=== PATIENT | female | born 2000 | race Caucasian/White ===

== ENCOUNTER 2022-01-27 15:37 | Emergency (ER) | payer OTHER, SELFPAY ==
[2022-01-27 15:38] VITALS: BP 119/68; PULSE 78; RESP 16; TEMP 36.4; O2SAT 100; BMI 21.9
--- NOTE | 2022-01-27 15:51 | CT_ITS ---
INDICATION: injury EXAMINATION: CT BRAIN - CT Head or Brain W/O Contrast Injection TECHNIQUE: Multiple axial images were obtained of the head without intravenous contrast. A radiation dose optimization technique was used for this scan. IV Contrast dosage and agent: None. COMPARISON: None. FINDINGS: BRAIN PARENCHYMA: No intra- or extra-axial hemorrhage. No evidence of acute infarct. No intracranial mass or mass effect. There is preservation of the wheeler/white matter interface. Posterior fossa structures are unremarkable. CSF SPACES: Appropriate for age. No hydrocephalus. Basal cisterns are patent. CALVARIUM, SKULL BASE, PARANASAL SINUSES AND MASTOID AIR CELLS: Clear. No discrete lytic or blastic abnormalities. ORBITS: Both globes, extraocular muscles, optic nerves and retrobulbar fat appear unremarkable. ASPECTS Score for Acute Strokes: 10 CT/Brain/Head without Contrast IMPRESSION: No evidence of acute pelvic pathology is seen. Electronically Signed: Yariel Armstrong MD at 16:23 EDT ,
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
== END 2022-01-27 16:43 | disposition home or self-care (01) ==
PROVIDERS: Emergency Provider Emergency Medicine; Visit Provider Emergency Medicine
DX: S06.0X0A Concussion without loss of consciousness, initial encounter (principal); W50.0XXA Accidental hit or strike by another person, initial encounter
CPT/HCPCS: 70450; 99282

== ENCOUNTER 2023-06-07 15:41 | Emergency (ER) | payer OTHER, SELFPAY ==
[2023-06-07 15:43] VITALS: BP 114/80; PULSE 88; RESP 16; TEMP 35.9; O2SAT 98; BMI 27.8
== END 2023-06-07 16:34 | disposition left against medical advice (07) ==
LOC: ED 16:37
DX: R51.9 Headache, unspecified (principal)

== ENCOUNTER 2023-06-07 21:29 | Emergency (ER) | payer OTHER, SELFPAY ==
[2023-06-07 21:30] VITALS: BP 131/74; PULSE 81; RESP 16; TEMP 36.4; O2SAT 98; BMI 25.6
--- NOTE | 2023-06-07 22:06 | EDS_ITS ---
HPI History of Present Illness Chief Complaint: Headache Detail of Chief Complaint: Headache Informant: patient Onset/Context/Timing Current Severity: 10/05 Narrative Narrative: Patient presents the emergency department complaint of a headache that initially started off for 5 days ago. She has had headache off and on since that time. She tried sumatriptan but did not seem to help much. She is also been using ibuprofen at home. She does have history of migraines. She saw neurologist a year ago who prescribed sumatriptan hand. Patient denies falls or head injuries. She denies recent illness. She denies fevers. Patient complains of occasional nausea and photophobia. PFSH PFSH Home Medications ondansetron 4 mg disintegrating tablet 4 mg PO Q6H PRN PRN Nausea #15 tabs 01/27/22 [Rx Last Taken Unknown] Allergy/AdvReac Type Severity Reaction Status Date / Time No Known Allergies Allergy Verified 06/07/23 21:32 Social History (Updated 01/27/22 @ 15:[address] Darnell Devries, DO) Smoking Status: Never smoker substance use type: does not use ROS ROS ED Review of Systems ROS Unobtainable: other Constitutional Constitutional ED: Reports lethargy; Denies chills, fever(s), sweats or weight loss Eyes Eyes: Denies blurry vision, change in vision or diplopia ENT ENT ED: Denies rhinorrhea or sore throat Cardiovascular Cardiovascular: Denies chest pain, orthopnea or racing heartbeat Respiratory/Chest Respiratory/Chest: Denies cough, dyspnea, dyspnea on exertion, orthopnea or sputum Gastrointestinal Gastrointestinal: Reports nausea; Denies abdominal pain, diarrhea or vomiting Genitourinary Genitourinary ED: Denies dysuria, hematuria or urinary frequency Musculoskeletal Musculoskeletal: Denies arthralgias, back pain, myalgias or neck pain Integumentary Denies abscess, Abrasions or rash Neurologic Neurologic: Reports headache(s); Denies weakness Psychiatric Psychiatric: Denies anxiety, depression or suicidal thoughts Endocrine Endocrinology: Denies polydipsia, polyphagia or polyuria Hematologic/Lymphatic Hematologic/Lymphatic: Denies easy bleeding, easy bruising or lymphadenopathy Allergic/Immunologic Allergic/Immunologic ED: Denies mouth swelling, tongue swelling or urticaria EXAM Physical Exam Const Vital Signs: 06/07/23 21:30 Temperature 97.5 F L Temperature Source Temporal Pulse Rate 81 Respiratory Rate 16 Blood Pressure 131/74 H Blood Pressure Mean 93 Pulse Ox 98 Oxygen Delivery Method Room Air Positive well nourished and well developed General Appearance ED: well developed and NAD HEENT Reports TM's clear and moist mucous membranes normocephalic and atraumatic; Negative for trauma or tenderness Tympanic Membrane ED: Yes TM's clear Eyes PERRL and EOMs intact bilaterally General Eye ED: Negative for pale conjunctiva or scleral icterus Neck no lymphadenopathy, supple and no JVD General: Negative for tenderness Chest Wall inspection of chest normal and palpation of chest normal Chest: Negative for tenderness Resp normal respiratory effort and clear to auscultation bilaterally Effort and Inspection: Negative for respiratory distress or pain with movement Auscultation: Negative for rhonchi, wheezes or diminished lung sounds Cardio regular rate, regular rhythm, S1 normal heart sound, S2 normal heart sound and no murmurs Peripheral Pulses: pulses 2+ throughout GI normal to inspection, nondistended, normoactive bowel sounds, soft to palpation, non-tender, non-distended and no masses Back/Spine no CVA tenderness and no thoracic nor lumbar tenderness Extremity normal to inspection General Extremety ED: Negative for edema General Extremity: Negative for edema Neuro oriented x3, CN's II-XII intact bilaterally, no sensory deficits noted and gait normal Sensorium / Orientation: awake, alert, oriented to person, oriented to place and oriented to time Motor Exam: strength 5/5 throughout and strength abnormal Psych mental status grossly normal Skin no rashes or lesions noted and no wounds MDM MDM MDM Narrative Medical decision making narrative: Patient presents with headache that is typical of her migraines. She normally gets migraines at least twice a month. Clinically she looks well and is nontoxic-appearing. No recent illness. IV line established. She was medicate with Reglan, Benadryl, Toradol, and a liter normal saline fluid bolus. She was also given Decadron 10 mg IV. After 25 minutes patient was reexamined and headaches resolved. Clinically she looks well. Advised to follow-up with her primary care physician and if she has recurrent persistent headaches to follow- up with her neurologist. Patient advised to return if worsening headache, difficulty with balance or speech, or condition worsen anyway. Discharge Plan Triage Chief Complaint: Headache ED Provider: Savana Patrick Dx/Rx/DC Orders Clinical Impression: Migraine headache Instructions: ED, Migraine (Classical) Prescriptions: No Action ondansetron [ondansetron] 4 mg tablet,disintegrating 4 mg PO Q6H PRN PRN (Reason: Nausea) Qty: 15 0RF Primary Care Provider: Care Physician,No Primary Referrals: Care Physician,No Primary [Primary Care Provider] - Activity Restrictions/Additional Instructions: Follow-up with your family doctor or neurologist within the next 3 to 5 days. Disposition Disposition: Home, Self Care Discharge Date/Time: 06/07/23 23:17
[2023-06-07] MEDS: DiphenhydrAMINE 50 MG/ML Syringe 25 MG IV (22:25)
[2023-06-07] MEDS: Metoclopramide 10 MG/2 ML Vial IV (22:25)
[2023-06-07] MEDS: 0.9% Normal Saline (1000mL) 1,000 ML 1000 ML IV (22:26)
[2023-06-07] MEDS: dexAMETHasone 10 MG/ML Vial IV (22:26)
[2023-06-07] MEDS: Ketorolac 30 MG/ML Syringe IV (22:26)
== END 2023-06-07 23:17 | disposition home or self-care (01) ==
PROVIDERS: Emergency Provider Emergency Medicine; Referring Provider Emergency Medicine; Visit Provider Emergency Medicine
DX: G43.909 Migraine, unspecified, not intractable, without status migrainosus (principal)
CPT/HCPCS: 96361; 96374; 96375; 99283; J7030; A4216

== ENCOUNTER 2023-06-10 20:53 | Emergency (ER) | payer OTHER, SELFPAY ==
[2023-06-10 20:54] VITALS: BP 136/92; PULSE 89; RESP 16; TEMP 36.6; O2SAT 98; BMI 27.7
--- NOTE | 2023-06-10 21:13 | EX.ED.DYSGE1 ---
HPI History of Present Illness Chief Complaint: Headache [facility] Medical History (Updated 06/10/23 @ 21:[address] Tunde Catalan, DO) Migraine Home Medications ondansetron 4 mg disintegrating tablet 4 mg PO Q6H PRN PRN Nausea #15 tabs 01/27/22 [Rx Last Taken Unknown] metoclopramide HCl 5 mg tablet (Reglan) 5 mg PO DAILY headache 7 days #21 tabs 06/10/23 [Rx Last Taken Unknown] Allergy/AdvReac Type Severity Reaction Status Date / Time No Known Allergies Allergy Verified 06/10/23 20:54 Social History (Updated 01/27/22 @ 15:[address] Darnell Devries, ) Smoking Status: Current every day smoker tobacco type: e-cigarettes substance use type: does not use EXAM Physical Exam Const Vital Signs: 06/10/23 20:54 Temperature 97.8 F Temperature Source Temporal Pulse Rate 89 Respiratory Rate 16 Blood Pressure 136/92 H Blood Pressure Mean 106 Pulse Ox 98 MDM MDM MDM Narrative Medical decision making narrative: HISTORY OF PRESENT ILLNESS: 22year old F presents with headache. States she has been having 7 days of bitemporal headache, nausea, sensitivity to light and sound. Similar to prior headaches. No head trauma. No focal weakness, no dysarthria, dysphagia, aphasia, no changes in vision. No fever or neck stiffness noted. No sick contacts. Patient denies sudden onset or thunderclap headache, denies maximal intensity within 1 minute, vomiting, neck pain or stiffness, changes in vision, fever, history malignancy, syncope, seizures. REVIEW OF SYSTEMS: All other systems reviewed and are negative except as noted in the history of present illness. At least 10 review of systems reviewed and are negative except as noted in history of present illness. PHYSICAL EXAM: Nursing triage notes reviewed, Vital signs reviewed Constitutional: please see mdm HENT: MMM Eyes: Pupils equal round and reactive to light, Extraocular muscles intact Neck: No stridor, no JVD, full neck ROM Lungs: Clear to auscultation, No wheezing or rales. No increased work of breathing, no conversational dyspnea, no accessory muscle use, no nasal flaring. No respiratory distress noted Heart: Regular rate and rhythm, No murmurs, No rubs and No gallops, 2+ distal pulses (radial, femoral, posterior tibial) in all extremities Abdomen: Soft, there is no tenderness, rigidity, rebound or guarding, no obvious peritoneal signs, no palpable pulsatile abdominal masses, no auscultated abdominal bruit : No CVAT Extremities: No edema Neuro: Alert and oriented x3, neuro exam at baseline, cranial nerves II through XII are intact. No pain with extraocular muscle movement. There is negative test of skew. Normal speech. 5 of 5 strength in upper and lower extremities in flexion extension. Intact sensation to light touch in upper and lower extremity dermatomes. No truncal or extremity ataxia. No dysdiadochokinesia. Normal gait. 2+ reflexes. No meningeal signs. Negative Babinski. NIH of 0 Skin: No rash or lesions noted MEDICAL DECISION MAKING: Chief Complaint: Headache External records reviewed: CT scan of the brain from January shows no acute process Factors affecting care: History of migraines Social determinants of health: Patient states she vapes History obtained from others: Patient significant other Consults: none ALL IMAGES (IF OBTAINED) HAVE BEEN PERSONALLY REVIEWED AND INTERPRETED BY MYSELF. MDM Narrative: Patient presented hemodynamically stable, afebrile, nontoxic-appearing. There were no focal neurological deficits on exam. I considered the following differential diagnosis: Subarachnoid hemorrhage, epidural hematoma, ICH, meningitis, carotid artery dissection, primary headache (primary headache, migraine, tension headache, cluster headache) The patient looks great and is in no significant objective discomfort currently. The patient's headache is non-specific. Exam is unremarkable. The patient is in no distress and the patient?s neurological exam is non-focal, neck is supple and without meningismus. The headache is not consistent with meningitis or infection, nor is it consistent with intracranial bleed (SAH etc.), carotid dissection, nor mass by history and examination. Medication and outpatient follow-up was instructed. The patient was instructed to return as needed or if symptoms changed or worsened, fever developed or inability to tolerate fluids. The patient agreed with plan. The patient and/or family, caregivers express understanding. The patient and/or family, caregivers agrees with the plan. Total critical care time today provided was at least 0 minutes. This excludes separately billable procedures. Critical care time (if documented) is secondary to the patient having high probability of clinically significant/life threatening deterioration in the patient's condition which required my urgent intervention. Shared decision making: I will have a discussion with the patient and or visitors regarding risk/benefits of further testing or admission. They will be made aware of of the risk/benefits inherent in this decision they will be given the opportunity to voice understanding. Impression: 1. Migraine headache ] Disposition: Discharge home Treatment and Re-Evaluation :: Repeat neurologic exam remains intact. Patient reported for discharge home. Discharge Plan Triage Chief Complaint: Headache ED Provider: Tunde Catalan Dx/Rx/DC Orders Clinical Impression: Migraine headache Instructions: ED, Migraine (Classical) Prescriptions: New metoclopramide HCl [Reglan] 5 mg tablet 5 mg PO DAILY 7 Days Qty: 21 0RF No Action ondansetron [ondansetron] 4 mg tablet,disintegrating 4 mg PO Q6H PRN PRN (Reason: Nausea) Qty: 15 0RF Primary Care Provider: Care Physician,No Primary Referrals: Care Physician,No Primary [Primary Care Provider] - Activity Restrictions/Additional Instructions: Thank you for trusting us with your care today! Please take Tylenol (2 pills, 650 mg), ibuprofen (2 pills, 400 mg) every 6 hours as needed for pain and fever control. Please take Reglan as needed for headache and nausea Please return to the emergency department if your symptoms change or worsen. Specifically develop loss of vision, neck stiffness, vomiting, loss of vision, slurred speech, difficulty swallowing Please follow with your primary care physician and/or your neurologist for further outpatient evaluation and management. Disposition Disposition: Home, Self Care Discharge Date/Time: 06/10/23 22:40
[2023-06-10] MEDS: dexAMETHasone 4 MG Tablet PO (21:38)
[2023-06-10] MEDS: Acetaminophen 325 MG Tablet 650 MG PO (21:38)
[2023-06-10] MEDS: Ibuprofen 200 MG Tablet 400 MG PO (21:38)
[2023-06-10] MEDS: Metoclopramide 5 MG TABLET PO (21:39)
== END 2023-06-10 22:40 | disposition home or self-care (01) ==
PROVIDERS: Emergency Provider Emergency Medicine; Visit Provider Emergency Medicine
DX: G43.909 Migraine, unspecified, not intractable, without status migrainosus (principal); F17.290 Nicotine dependence, other tobacco product, uncomplicated
CPT/HCPCS: 99283

== ENCOUNTER 2023-10-30 17:22 | Inpatient (IN) | payer OTHER, SELFPAY ==
[2023-10-30] VITALS (12 sets, daily range): BP systolic 103–131; BP diastolic 57–79; PULSE 94–129; RESP 14–22; TEMP 36.2–37.6; O2SAT 94–98; BMI 28.8
--- NOTE | 2023-10-30 | APP_PTH ---
PATIENT: RUBINA COX LOC: [facility] U#:[id number] AGE/SX: 23/F ROOM: [facility]313 RE10/30/[address]: Dr. Dana Smith MD : 2000 BED: 1 DIS: 11/02/2023 SPEC #: [id number] RECD: 11/01/23 08:13 STATUS: JUANPABLO FREDERICK #: [id number] ALAYNA: 10/30/23 00:[address]: Dana Smith DEPT: SURGICAL PATHOLOGY RECD BY: Merlyn Hanson Tissues: Appendix, NOS Procedures: Surgery Specimen Level III HEADER OPERATION: Laparoscopic, appendectomy perforated PRE-OP DIAGNOSIS: Acute perforated appendicitis TISSUE SUBMITTED: Appendix MICROSCOPIC DIAGNOSIS Appendix, appendectomy: Acute purulent appendicitis and periappendicitis. BARBARA/ 11/02/23 MICROSCOPIC DESCRIPTION Slides are reviewed. GROSS DESCRIPTION Received in fixative is one container labeled with the patient's name and designated appendix. The specimen consists of appendix measuring 5.5 cm in length and up to 1.5 cm in diameter. The attached periappendiceal adipose tissue measures up to 1.5 cm in width. The serosa is congested and covered with wheeler purulent exudate. No obvious perforation is identified. The lumen is filled with fecal material. Mucosa is congested and hemorrhagic. No fecalith is identified. Programming Development Project Manager sections are submitted in one cassette. BARBARA: 11/01/23 TC:2 CPT: 86853
--- NOTE | 2023-10-30 18:01 | CT_ITS ---
We are attempting to reach an attending provider to discuss findings. An addendum with communication details will be sent when the communication is complete. STUDY: CT ABDOMEN AND PELVIS WITH CONTRAST REASON FOR EXAM: Female, 23 years old. RLQ pain RADIATION DOSAGE (If Supplied By Facility): CTDIvol = ( 10.43 ) mGy, DLP = ( 662.51 ) mGycm TECHNIQUE: Transaxial images were obtained from the dome of the diaphragm to the symphysis pubis without oral contrast. IV 100mL Isovue-370 was administered. Sagittal and coronal images were reconstructed. Individualized dose optimization techniques were used for this CT. COMPARISON: None. FINDINGS: The visualized lung bases are unremarkable. The visualized portions of the heart are within normal limits. Normal liver. Normal gallbladder and extrahepatic biliary system. Normal spleen. Normal pancreas. Normal bilateral adrenal glands. Normal right kidney. Normal left kidney. Normal visualized stomach. Normal small intestine. Air-fluid levels noted in the colon. There is a tubular, thick-walled appendix (>7mm), consistent with acute appendicitis. Normal abdominal aorta. Normal inferior vena cava. Normal retroperitoneum. Normal urinary bladder. Possible 2.5 cm right adnexal cyst. Normal abdominal wall. Normal osseous structures. CT/Abdomen/Pelvis W IV Cont ONLY IMPRESSION: Acute appendicitis without evidence of abscess or perforation. Electronically Signed: Simon Kay MD at 20:30 EDT ,
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
[2023-10-30] MEDS: Ondansetron 4 MG/2 ML Vial IV (18:20)
[2023-10-30] MEDS: 0.9% Normal Saline (1000mL) 1,000 ML 1000 ML IV (18:20)
[2023-10-30] MEDS: Ketorolac 15 MG/ML Vial IV (18:21)
[2023-10-30 18:33] LABS: Absolute Lymphocyte Count 1.91 X10^3/uL (0.83-4.51); Absolute Neutrophil Count 19.1 X10^3/uL (2.0-7.7); Basophil# 0.05 X10^3/uL; Basophil% 0.2 % (0-1); Eosinophil# 0.01 X10^3/uL; Hematocrit 40.5 % (37-47); Hemoglobin 13.8 g/dL (12.0-15.0); Lymphocyte # 1.91 X10^3/ul (0.83-4.51); Lymphocyte % 8.5 % (19-41); Mean Corp Hgb Conc 34.1 g/dL (32-36); Mean Platelet Vol. 9.7 fl (6.2-12.0); Monocyte# 1.28 X10^3/uL; Monocyte% 5.7 % (0-10); NRBC Flagged by Analyzer 0 % (0-5); Neutrophil # 19.11 X10^3/uL (2.7-7.7); Neutrophil % 85.2 % (47-70); Platelet Count 353 K/mm3 (150-450); RBC Distribution Width CV 11.4 % (11.6-14.6); RBC Distribution Width SD 38.3 fl (35.1-43.9); Red Blood Count 4.45 M/mm3 (4.2-5.4); White Blood Count 22.5 K/mm3 (4.4-11.0)
[2023-10-30 18:42] LABS: Internal QC Validated? YES +Cl - CLEAR BKGD; Pregnancy, Serum, hCG Quali. NEGATIVE Negative
[2023-10-30] MEDS: Morphine 4 MG/ML Syringe IV (18:44)
[2023-10-30 18:50] LABS: ALB/GLOB Ratio 1.1 RATIO (0.9-2.4); AST(SGOT) 6 U/L (15-37); Alanine Aminotransfer ALT/SGPT 21 U/L (13-56); Albumin, Serum 3.9 g/dL (3.2-5.0); Alkaline Phosphatase 78 U/L (45-117); Anion Gap 11 (5-15); BUN 7 mg/dL (7-18); BUN/Creat Ratio 10.2 RATIO (10-20); Calcium,Total 9.1 mg/dL (8.5-10.1); Chloride 105 mmol/L (98-107); Creatinine, Serum 0.69 mg/dL (0.55-1.02); EST Glomerular Filtration Rate 114 mL/min (>60); Est Glom Filt Rate - Afr Amer 139 mL/min (>60); Estimated Creatinine Clearance 119.42 ml/min; Globulin 3.6 g/dL (2.2-4.2); Glucose 121 mg/dL (74-106); Lipase 21 U/L (13-75); Potassium 3.4 mmol/L (3.5-5.1); Protein, Total 7.5 g/dL (6.4-8.2); Sodium Level 137 mmol/L (136-145)
[2023-10-30] MEDS: Piperacil/Tazobactam 3.375 GM in 0.9% Normal Saline (50mL MB+) 50 ML IV (19:42)
[2023-10-30 19:47] LABS: Bacteria 0 SEEN /hpf (None Seen); Mucous, Urine 0 SEEN /hpf (<or=2+); Red Blood Cells-Urine 0 SEEN /hpf (0-5); Squamous Epithelial Cells - UA 0 SEEN /hpf (5-10); White Blood Cells 0 SEEN /hpf (0-5)
--- NOTE | 2023-10-30 19:54 | PCM.HP.STD ---
HPI - General General Date of Admission: 10/30/23 HPI Narrative RUBINA COX, is a 23 F who presents to the ER due to right lower quadrant pain. Patient states started about 24 hours ago. Patient had nausea and vomiting x 1 she arrived in the ER. Patient white blood count 22.5. CT abdomen pelvis was completed and showed acute perforated appendicitis-on my read official read pending. Patient has never had any abdominal surgeries. Only on naproxen due to migraines for medications. [facility] Medical History Migraine Home Medications naproxen 500 mg tablet 500 mg PO BID PRN PRN pain 10/30/23 [History Last Taken Unknown] Allergy/AdvReac Type Severity Reaction Status Date / Time No Known Allergies Allergy Verified 10/30/23 17:23 Social History Smoking Status: Current every day smoker tobacco type: e-cigarettes substance use type: does not use Vital Signs Vital Signs Vital Signs: 10/30/23 17:23 10/30/23 19:39 10/30/23 19:41 Temperature 97.2 F L 98.4 F Temperature Source Temporal Oral Pulse Rate 129 H 114 H 114 H Respiratory Rate 16 22 H 14 Blood Pressure 109/79 131/77 H 131/77 H Blood Pressure Mean 89 95 95 Blood Pressure Source Monitor Blood Pressure Position Semi-Fowlers Blood Pressure Location Right Arm Pulse Ox 97 98 98 Oxygen Delivery Method Room Air Room Air Room Air 10/30/23 19:46 Temperature 98.4 F Temperature Source Pulse Rate 114 H Respiratory Rate 22 H Blood Pressure 131/77 H Blood Pressure Mean 95 Blood Pressure Source Blood Pressure Position Blood Pressure Location Pulse Ox 98 Oxygen Delivery Method Weight Weight: 157 lb 9.6 oz Body Mass Index (BMI) 28.8 Physical Exam Const alert, oriented x3 and no apparent distress HEENT normocephalic and head/scalp atraumatic Resp normal respiratory effort Cardio regular rate GI soft to palpation; Negative for non-distended Palpation: tender LLQ, RLQ and Rovsing's sign; Negative for guarding Extremity no clubbing, cyanosis or edema Neuro CN's II-XII intact bilaterally Psych mental status grossly normal Results Lab / Micro Data 10/30/23 18:20 10/30/23 18:20 Labs: Laboratory Results - last 24 hr 10/30/23 18:20: WBC 22.5 H, RBC 4.45, Hgb 13.8, Hct 40.5, MCV 91.0, MCH 31.0, MCHC 34.1, RDW Std Deviation 38.3, RDW Coeff of Rama 11.4 L, Plt Count 353, MPV 9.7, Immature Gran % (Auto) 0.400, Neut % (Auto) 85.2 H, Lymph % (Auto) 8.5 L, [place] % (Auto) 5.7, Eos % (Auto) 0.0, Baso % (Auto) 0.2, Absolute Neuts (auto) 19.1 H, Absolute Lymphs (auto) 1.91, Nucleated RBC % 0, Sodium 137, Potassium 3.4 L, Chloride 105, Carbon Dioxide 21.0, Anion Gap 11, BUN 7, Creatinine 0.69, Estim Creat Clear Calc 119.42, Est GFR (MDRD) Af Amer 139, Est GFR (MDRD) Non-Af 114, BUN/Creatinine Ratio 10.2, Glucose 121 H, Calcium 9.1, Total Bilirubin 0.70, AST 6 L, ALT 21, Alkaline Phosphatase 78, Total Protein 7.5, Albumin 3.9, Globulin 3.6, Albumin/Globulin Ratio 1.1, Lipase 21, Serum , Qual NEGATIVE Assessment & Plan Assessment/Plan (1) Acute perforated appendicitis: PLAN: Plan 1. Discussed procedure laparoscopic appendectomy, possible open, possible bowel resection along with the risk but not limited to bleeding, infection/abscess higher chance due to perforation, injury to another organ (small bowel, colon, etc.), adhesion, hernia at incision sites, and anesthesia. Patient and her mom had no further question this time. Dana Smith M.D. Pager: [phone] [facility] [address] [place] [address], [facility], [address] [place] [address] Office: [phone] Dana Smith M.D. Pager: [phone] [facility] [address] [place] [address], [address] [place] [address] Office: [phone]
[2023-10-30 20:15] LABS: Color, Urine Yellow (Yellow); Glucose, Dipstick Normal (Normal); Leukocyte Esterase-Dipstick Negative /ul (Negative); Nitrite-Dipstick Negative (Negative); Occult Blood-Urine 10 /ul (Negative); Protein-Dipstick 15 mg/dl (Negative); Specific Gravity, Urine 1.005 (1.002-1.030); Urine Bilirubin Dipstick Negative (Negative); Urine Clarity Clear (Clear); Urine Urobilinogen Normal (Normal); Urine pH 6.5 (5.0 - 8.0)
[2023-10-30 20:17] LABS: Ketone-Dipstick 150 mg/dl (Negative)
--- NOTE | 2023-10-30 20:50 | FLU_PTH ---
PATIENT: RUBINA COX LOC: MS3 U#:[id number] AGE/SX: 23 ROOM: MS313 RE10/30/[address]: Dr. Dana Smith MD : 2000 BED: 1 DIS: 11/02/2023 SPEC #: [id number] RECD: 10/31/23 21:00 STATUS: JUANPABLO MACK #: [id number] ALAYNA: 10/30/23 20:[address]: Dana Smith DEPT: CYTOLOGY RECD BY: Merlyn Hanson Tissues: Abdominal cavity, NOS Procedures: Special Stain Group II Surgery Specimen Level IV Cytospin Fluid HEADER OPERATION: Laparoscopic, appendectomy perforated PRE-OP DIAGNOSIS: Acute perforated appendicitis TISSUE SUBMITTED: Abdominal abscess fluid DIAGNOSIS CYTOLOGY Abdominal abscess fluid (cytospin and cellblock): Negative for malignant cells. Marked acute inflammation. See comment. BARBARA/ 11/03/23 COMMENT Please also make reference to additional specimen [id number] appendix, appendectomy diagnosis of acute purulent appendicitis and periappendicitis. CYTOLOGY STUDY Slides are reviewed. CYTOLOGY GROSS Received is 10 ml of carrillo-cloudy fluid labeled with the patient's name and and designated per the requisition as Abdominal abscess fluid. Submitted for cytology preparation including cell block. Mr 11/01/23 TC:2 CPT: 09181,94873
[2023-10-30] MEDS: Bupiv/Epi 0.25% 30 ML Vial (21:11)
--- NOTE | 2023-10-30 21:11 | PCM.OPRPT ---
Report of Operation Date of Procedure: 10/30/23 Pre-Operative Diagnosis: Acute perforated appendicitis Post-Operative Diagnosis: Same Surgery/Procedure Performed:: Laparoscopic appendectomy, placement ALPHONSE Surgeon: Dana Smith garment manufacturer: Chinyere Amaro Type of Anesthesia: General/Supplemental Anesthesiologist: Caleb Arellano Special Medications: Zosyn IV in the ER for acute perforated appendicitis Specimen's removed: Appendix Drains: ALPHONSE 15 Fr Estimated Blood Loss (mL): 10 cc Fluids Replaced: 1000 cc Description of Procedure: Indications: 23-year-old female presented to the ER with yesterday right lower quadrant pain morning. On workup she was found to have acute appendicitis on CT and a leukocytosis of 22. Patient was started on antibiotics in the ER for acute appendicitis-Zosyn IV x1 Description of the procedure: The patient was placed on operating table in supine position. General anesthesia was induced. A timeout was completed verifying correct patient, procedure, position and special equipment prior to beginning procedure. Abdomen was prepped and draped in usual sterile fashion. Incision was made in the natural skin line above the umbilicus with a 15 blade scalpel. The fascia was elevated and incised. Entry into the peritoneum was confirmed visually and no bowel was noted in the vicinity of the incision. The Benites trocar was placed under direct vision. Abdomen insufflated with a pressure of 12-15 mmHg. Patient tolerated insertion well. The scope was inserted and the abdomen inspected. No injuries from initial trocar placement were noted. Minimal amount of fluid was seen in the right lower quadrant. An direct visualization 2 -5 mm trocars were placed one above the symphysis pubis and below the hairline and one in the left lower quadrant lateral to the rectus muscle. Care is taken to avoid injury to the bladder and inferior epigastric vessels. The table was placed in Trendelenburg position with the right side elevated. The appendix was grasped with atraumatic grasper and elevated. It was noted to be gangrenous/perforated. Purulent fluid was seen throughout the abdomen. Fluid was sent for culture. Purulent fluid was suctioned. A window was developed in the mesoappendix at the point between the base of the appendix and the cecum. An endoscopic 45 mm linear cutting stapler blue load was then used to divide and staple the base of the appendix. Enseal was used to divide the mesoappendix. The appendix was withdrawn into the Benites trocar after being placed endoscopically retrieval bag. Appendix was sent to pathology. The appendiceal stump was then irrigated and hemostasis was assured. Abdomen was copiously irrigated with saline and suctioned. 15 [place]ien ALPHONSE was placed into the pelvis?exiting the left lower quadrant trocar site. Secondary trochars were removed under direct visualization. No bleeding was noted trocar sites. The laparoscope withdrawn and the umbilical trocar removed. The abdomen was allowed to collapse. Local anesthesia of 30 mL of 0.5% Marcaine was used at the incision sites. The umbilical trocar site was closed with the [id number] 0 Vicryl suture. The skin was closed using sutures of 4-0 Monocryl and Steri-Strips. The patient was extubated. The patient tolerated the procedure well and was taken to the postanesthesia care unit in satisfactory condition. Complications none
[2023-10-30] MEDS: 0.9% Normal Saline (1000mL) 1,000 ML 150 ML IV (22:45)
[2023-10-30] MEDS: Pantoprazole Sodium 40 MG in 0.9% Normal Saline (100mL MB+) 100 ML 330 MG IV (22:47)
[2023-10-31] VITALS (7 sets, daily range): BP systolic 95–114; BP diastolic 55–73; PULSE 73–95; RESP 13–18; TEMP 36.5–37.2; O2SAT 97–100
[2023-10-31] MEDS: Ketorolac 15 MG/ML Vial IV ×3 (00:59→22:45)
[2023-10-31] MEDS: 0.9% Normal Saline (1000mL) 1,000 ML 150 ML IV ×2 (05:43→12:02)
[2023-10-31] MEDS: Piperacil/Tazobactam 3.375 GM in 0.9% Normal Saline (50mL MB+) 50 ML IV ×3 (05:44→21:00)
[2023-10-31 06:50] LABS: Absolute Lymphocyte Count 0.43 X10^3/uL (0.83-4.51); Absolute Neutrophil Count 14.1 X10^3/uL (2.0-7.7); Basophil# 0.02 X10^3/uL; Basophil% 0.1 % (0-1); Hematocrit 34.5 % (37-47); Hemoglobin 11.6 g/dL (12.0-15.0); Lymphocyte # 0.43 X10^3/ul (0.83-4.51); Lymphocyte % 2.8 % (19-41); Mean Corp Hgb Conc 33.6 g/dL (32-36); Mean Corpuscular Hgb 31.4 pg (27.0-32.0); Mean Corpuscular Volume 93.2 fL (81-99); Mean Platelet Vol. 10.4 fl (6.2-12.0); Monocyte# 0.53 X10^3/uL; Monocyte% 3.5 % (0-10); NRBC Flagged by Analyzer 0 % (0-5); Neutrophil # 14.13 X10^3/uL (2.7-7.7); Neutrophil % 93.2 % (47-70); POSITIVE DIFFERENTIAL YES; Platelet Count 266 K/mm3 (150-450); RBC Distribution Width CV 11.6 % (11.6-14.6); RBC Distribution Width SD 39.6 fl (35.1-43.9); White Blood Count 15.2 K/mm3 (4.4-11.0)
[2023-10-31 07:05] LABS: Anion Gap 5 (5-15); BUN 6 mg/dL (7-18); BUN/Creat Ratio 9.3 RATIO (10-20); Calcium,Total 8.5 mg/dL (8.5-10.1); Chloride 114 mmol/L (98-107); Creatinine, Serum 0.64 mg/dL (0.55-1.02); EST Glomerular Filtration Rate 123 mL/min (>60); Est Glom Filt Rate - Afr Amer 149 mL/min (>60); Estimated Creatinine Clearance 128.85 ml/min; Glucose 152 mg/dL (74-106); Sodium Level 141 mmol/L (136-145)
--- NOTE | 2023-10-31 08:23 | PCM.PN.SRG ---
Subjective Subjective Patient states her pain is improved from previous to surgery. Patient's ALPHONSE is purulent, tolerating clears, denies flatus, white blood count down to 13 Objective Data Objective Data Vital Signs: Vital Signs Temp Pulse Resp BP Pulse Ox O2 Del Method 97.7 F L 81 18 107/69 97 Room Air 10/31/23 05:52 10/31/23 05:52 10/31/23 05:52 10/31/23 05:52 10/31/23 05:52 10/31/23 05:52 Oxygen Delivery Method Room Air Weight: 157 lb 13.616 oz Body Mass Index (BMI) 28.8 Intake & Output: Intake and Output for Last 24 Hours 10/29/23 10/30/23 10/31/23 23:59 23:59 23:59 Intake Total 2500 / 2500 1300 / 1300 Output Total 39 / 39 30 / 30 Balance 2461 / 2461 1270 / 1270 Lab / Micro Data 10/31/23 05:30 10/31/23 05:30 Labs: Laboratory Results - last 24 hr 10/30/23 18:20: WBC 22.5 H, RBC 4.45, Hgb 13.8, Hct 40.5, MCV 91.0, MCH 31.0, MCHC 34.1, RDW Std Deviation 38.3, RDW Coeff of Rama 11.4 L, Plt Count 353, MPV 9.7, Immature Gran % (Auto) 0.400, Neut % (Auto) 85.2 H, Lymph % (Auto) 8.5 L, [place] % (Auto) 5.7, Eos % (Auto) 0.0, Baso % (Auto) 0.2, Absolute Neuts (auto) 19.1 H, Absolute Lymphs (auto) 1.91, Nucleated RBC % 0, Sodium 137, Potassium 3.4 L, Chloride 105, Carbon Dioxide 21.0, Anion Gap 11, BUN 7, Creatinine 0.69, Estim Creat Clear Calc 119.42, Est GFR (MDRD) Af Amer 139, Est GFR (MDRD) Non-Af 114, BUN/Creatinine Ratio 10.2, Glucose 121 H, Calcium 9.1, Total Bilirubin 0.70, AST 6 L, ALT 21, Alkaline Phosphatase 78, Total Protein 7.5, Albumin 3.9, Globulin 3.6, Albumin/Globulin Ratio 1.1, Lipase 21, Serum , Qual NEGATIVE 10/30/23 19:42: Urine Color Yellow, Urine Clarity Clear, Urine pH 6.5, Ur Specific [place] 1.005, Urine Protein 15 H, Urine Glucose (UA) Normal, Urine Ketones 150 A*, Urine Occult Blood 10 H, Urine Nitrite Negative, Urine Bilirubin Negative, Urine Urobilinogen Normal, Ur Leukocyte Esterase Negative, Urine RBC 0 SEEN, Urine WBC 0 SEEN, Ur Squamous Epith Cells 0 SEEN, Urine Bacteria 0 SEEN, Urine Mucus 0 SEEN 10/31/23 05:30: WBC 15.2 H, RBC 3.70 L, Hgb 11.6 L, Hct 34.5 L, MCV 93.2, MCH 31.4, MCHC 33.6, RDW Std Deviation 39.6, RDW Coeff of Rama 11.6, Plt Count 266, MPV 10.4, Immature Gran % (Auto) 0.400, Neut % (Auto) 93.2 H, Lymph % (Auto) 2.8 L, [place] % (Auto) 3.5, Eos % (Auto) 0.0, Baso % (Auto) 0.1, Absolute Neuts (auto) 14.1 H, Absolute Lymphs (auto) 0.43 L, Nucleated RBC % 0, Sodium 141, Potassium 4.0, Chloride 114 H, Carbon Dioxide 22.0, Anion Gap 5, BUN 6 L, Creatinine 0.64, Estim Creat Clear Calc 128.85, Est GFR (MDRD) Af Amer 149, Est GFR (MDRD) Non-Af 123, BUN/Creatinine Ratio 9.3 L, Glucose 152 H, Calcium 8.5 Radiography Diagnostic Testing: Radiology Impression Abdomen/Pelvis CT 10/30/23 18:01 IMPRESSION: Acute appendicitis without evidence of abscess or perforation. Electronically Signed: Simon Kay MD at 20:30 EDT Reading Location ID and State: Pending sale to [facility] / [place] Tel , Service support , ADDENDUM: 10/30/232047 IMPRESSION: Acute appendicitis without evidence of abscess or perforation. N.B. : The above Results were Read Back by Simon Kay MD to DENISE Galloway, and understanding confirmed on 10/30/2023 20:41:49 (ET). Electronically Signed: Simon Kay MD at 20:30 EDT , Physical Exam Resp normal respiratory effort Cardio regular rate GI GI Narrative: Abdomen: Soft, nondistended, tender near incision's dressed clean dry and intact, no peritoneal signs, ALPHONSE purulent Assessment & Plan Assessment/Plan (1) S/P laparoscopic appendectomy: (2) Acute perforated appendicitis: PLAN: Plan Continue clears until bowel function. Encourage ambulation in the halls ALPHONSE purulent continue to monitor Continue IV Zosyn, white blood count down to 13 from 22. Dana Smith M.D. Pager: [phone] [facility] [address] [place] [address], [facility], [address] [place] [address] Office: [phone]
[2023-10-31] MEDS: Pantoprazole Sodium 40 MG in 0.9% Normal Saline (100mL MB+) 100 ML 330 MG IV (10:52)
[2023-10-31] MEDS: 0.9% Saline Lock 10 ML Syringe IV (16:35)
[2023-10-31] MEDS: oxyCODONE 5 MG Tablet PO (21:00)
[2023-10-31] MEDS: Acetaminophen 325 MG Tablet 650 MG PO (21:00)
[2023-10-31] MEDS: 0.9% Normal Saline (1000mL) 1,000 ML 100 ML IV (21:01)
[2023-11-01 03:19] VITALS: BP 103/73; PULSE 86; RESP 18; TEMP 36.8; O2SAT 99
[2023-11-01] MEDS: Piperacil/Tazobactam 3.375 GM in 0.9% Normal Saline (50mL MB+) 50 ML IV ×3 (06:04→21:49)
[2023-11-01] MEDS: Ketorolac 15 MG/ML Vial IV ×3 (06:04→19:02)
[2023-11-01 06:05] LABS: Absolute Lymphocyte Count 1.43 X10^3/uL (0.83-4.51); Absolute Neutrophil Count 8.1 X10^3/uL (2.0-7.7); Basophil# 0.01 X10^3/uL; Basophil% 0.1 % (0-1); Eosinophil# 0.06 X10^3/uL; Eosinophils% 0.6 % (0-5); Hematocrit 29.9 % (37-47); Hemoglobin 9.9 g/dL (12.0-15.0); Lymphocyte # 1.43 X10^3/ul (0.83-4.51); Lymphocyte % 14.1 % (19-41); Mean Corp Hgb Conc 33.1 g/dL (32-36); Mean Corpuscular Hgb 31.2 pg (27.0-32.0); Mean Corpuscular Volume 94.3 fL (81-99); Mean Platelet Vol. 10.6 fl (6.2-12.0); Monocyte% 4.9 % (0-10); NRBC Flagged by Analyzer 0 % (0-5); Neutrophil # 8.11 X10^3/uL (2.7-7.7); Platelet Count 226 K/mm3 (150-450); RBC Distribution Width CV 11.9 % (11.6-14.6); RBC Distribution Width SD 41.5 fl (35.1-43.9); Red Blood Count 3.17 M/mm3 (4.2-5.4); White Blood Count 10.1 K/mm3 (4.4-11.0)
[2023-11-01] MEDS: 0.9% Normal Saline (1000mL) 1,000 ML 100 ML IV (06:06)
[2023-11-01 06:27] LABS: Anion Gap 5 (5-15); BUN 9 mg/dL (7-18); BUN/Creat Ratio 17.8 RATIO (10-20); Calcium,Total 7.7 mg/dL (8.5-10.1); Chloride 114 mmol/L (98-107); Creatinine, Serum 0.51 mg/dL (0.55-1.02); EST Glomerular Filtration Rate 163 mL/min (>60); Est Glom Filt Rate - Afr Amer 197 mL/min (>60); Glucose 93 mg/dL (74-106); Potassium 3.5 mmol/L (3.5-5.1); Sodium Level 140 mmol/L (136-145)
--- NOTE | 2023-11-01 07:15 | PN.SURG_ITS ---
Subjective Subjective Patient is having flatus and bowel movement still tolerating clears. Patient with blood count down to 10 from 15. Objective Data Objective Data Vital Signs: Vital Signs Temp Pulse Resp BP Pulse Ox O2 Del Method 98.2 F 86 18 103/73 99 Room Air 11/01/23 03:19 11/01/23 03:19 11/01/23 03:19 11/01/23 03:19 11/01/23 03:19 11/01/23 03:19 Oxygen Delivery Method Room Air Weight: 157 lb 13.616 oz Body Mass Index (BMI) 28.8 Intake & Output: Intake and Output for Last 24 Hours 10/30/23 10/31/23 11/01/23 23:59 23:59 23:59 Intake Total 2500 / 2500 3802.5 / 3802.5 1158.33 / 1158.33 Output Total 39 / 39 115 / 115 35 / 35 Balance 2461 / 2461 3687.5 / 3687.5 1123.33 / 1123.33 Lab / Micro Data 11/01/23 05:08 11/01/23 05:08 Labs: Laboratory Results - last 24 hr 11/01/23 05:08: WBC 10.1, RBC 3.17 L, Hgb 9.9 L, Hct 29.9 L, MCV 94.3, MCH 31.2, MCHC 33.1, RDW Std Deviation 41.5, RDW Coeff of Rama 11.9, Plt Count 226, MPV 10.6, Immature Gran % (Auto) 0.300, Neut % (Auto) 80.0 H, Lymph % (Auto) 14.1 L, Cross % (Auto) 4.9, Eos % (Auto) 0.6, Baso % (Auto) 0.1, Absolute Neuts (auto) 8.1 H, Absolute Lymphs (auto) 1.43, Nucleated RBC % 0, Sodium 140, Potassium 3.5, Chloride 114 H, Carbon Dioxide 21.0, Anion Gap 5, BUN 9, Creatinine 0.51 L, Estim Creat Clear Calc 161.70, Est GFR (MDRD) Af Amer 197, Est GFR (MDRD) Non-Af 163, BUN/Creatinine Ratio 17.8, Glucose 93, Calcium 7.7 L Micro: Microbiology 10/30/23 Unknown Wound Abcess - Abdominal Gram Stain - Final 10/30/23 Unknown Wound Abcess - Abdominal Wound Culture - Preliminary Gram negative marisa Gram negative marisa#2 Physical Exam Resp normal respiratory effort Cardio regular rate GI GI Narrative: Abdomen: Soft, nondistended, tender near incision's dressed clean dry and intact?small mild erythema to the right of the supraumbilical incision., no peritoneal signs, ALPHONSE serous in the tubing Assessment & Plan Assessment/Plan (1) S/P laparoscopic appendectomy: (2) Acute perforated appendicitis: PLAN: Plan Will advance to regular diet encourage ambulation in the halls ALPHONSE serous in the tubing plan changed bulb inside the bulb is purulence it is more difficult to check Continue IV Zosyn, white blood count down to 10 from 15 Dana Smith M.D. Pager: [phone] [facility] [address] [place] [address], [facility], [address] [place] [id number] Office: [phone]
[2023-11-01 09:00] VITALS: PULSE 90
[2023-11-01 09:19] VITALS: BP 117/75; PULSE 90; RESP 18; TEMP 36.3; O2SAT 99
--- NOTE | 2023-11-01 10:17 | CASEMGMT ---
CORRY COX Assessment: Face to Face with pt for initial transition planning/care coordination assessment. RN KENNY introduced self and role at [facility], pt voices understanding and consents to assessment. Pt laying in bed in no distress. Pt boyfriend sitting at bedside. Pt is A&O x4 and answers all questions appropriately at this time. Care providers, pharmacy, and demographics verified/updated. Admitting Dx: Acute Perforated Appendicitis PCP: Gm Specialists: Barrera, Neurologist [facility]erred Pharmacy: [facility] Insurance: Medical [place] Prescription Benefit: yes LNOK: Andrzej - Father, Laquita - Mother Living Arrangements: Pt lives with boyfriend and a roommate in a 2 story house with 4 steps with a handrail to enter. Denies any concerns with going home. Transportation: Pt drives self and denies concerns with transportation. DME: Denies HHC/SNF: Denies Hx of. Pt states no concerns with going home at time of dc. Pt states no further concerns/needs. CM to follow. Advised pt to ask CM if any further question/concerns/needs arise, voices understanding. Pt Goal: Plan: Amrita WHEATLEY CM
[2023-11-01] MEDS: Pantoprazole Sodium 40 MG in 0.9% Normal Saline (100mL MB+) 100 ML 330 MG IV (12:43)
[2023-11-01 16:00] VITALS: BP 122/70; PULSE 89; RESP 18; TEMP 36.9; O2SAT 99
[2023-11-01 21:43] VITALS: BP 100/56; PULSE 74; RESP 16; TEMP 36.5; O2SAT 100
[2023-11-01] MEDS: Acetaminophen 325 MG Tablet 650 MG PO (21:53)
[2023-11-01] MEDS: oxyCODONE 5 MG Tablet PO (21:53)
[2023-11-01] MEDS: 0.9% Normal Saline (1000mL) 1,000 ML 60 ML IV (21:53)
[2023-11-02 02:19] VITALS: BP 93/52; PULSE 78; RESP 16; TEMP 36.9; O2SAT 98
[2023-11-02 05:49] VITALS: BP 97/65; PULSE 75; RESP 16; TEMP 36.9; O2SAT 98
[2023-11-02] MEDS: Piperacil/Tazobactam 3.375 GM in 0.9% Normal Saline (50mL MB+) 50 ML IV (05:57)
[2023-11-02 07:26] LABS: Absolute Lymphocyte Count 1.24 X10^3/uL (0.83-4.51); Basophil# 0.03 X10^3/uL; Basophil% 0.5 % (0-1); Eosinophil# 0.18 X10^3/uL; Eosinophils% 3.1 % (0-5); Hematocrit 29.4 % (37-47); Hemoglobin 9.7 g/dL (12.0-15.0); Lymphocyte # 1.24 X10^3/ul (0.83-4.51); Lymphocyte % 21.2 % (19-41); Mean Corpuscular Hgb 31.2 pg (27.0-32.0); Mean Corpuscular Volume 94.5 fL (81-99); Mean Platelet Vol. 10.6 fl (6.2-12.0); Monocyte# 0.41 X10^3/uL; NRBC Flagged by Analyzer 0 % (0-5); Neutrophil # 3.97 X10^3/uL (2.7-7.7); Neutrophil % 67.9 % (47-70); Platelet Count 211 K/mm3 (150-450); RBC Distribution Width CV 11.9 % (11.6-14.6); RBC Distribution Width SD 41.3 fl (35.1-43.9); Red Blood Count 3.11 M/mm3 (4.2-5.4); White Blood Count 5.9 K/mm3 (4.4-11.0)
[2023-11-02 08:52] VITALS: BP 118/67; PULSE 70; RESP 18; TEMP 36.9; O2SAT 96
--- NOTE | 2023-11-02 10:38 | PN.SURG_ITS ---
Subjective Subjective Tolerating diet, having bowel function, pain controlled Objective Data Objective Data Vital Signs: Vital Signs Temp Pulse Resp BP Pulse Ox O2 Del Method 98.5 F 70 18 118/67 96 Room Air 11/02/23 08:52 11/02/23 08:52 11/02/23 08:52 11/02/23 08:52 11/02/23 08:52 11/02/23 08:52 Oxygen Delivery Method Room Air Weight: 157 lb 13.616 oz Body Mass Index (BMI) 28.8 Intake & Output: Intake and Output for Last 24 Hours 10/31/23 11/01/23 11/02/23 23:59 23:59 23:59 Intake Total 3802.5 / 3802.5 3868.33 / 4268.33 550 / 550 Output Total 115 / 115 165 / 165 35 / 35 Balance 3687.5 / 3687.5 3703.33 / 4103.33 515 / 515 Lab / Micro Data 11/02/23 06:34 11/01/23 05:08 Labs: Laboratory Results - last 24 hr 11/02/23 06:34: WBC 5.9, RBC 3.11 L, Hgb 9.7 L, Hct 29.4 L, MCV 94.5, MCH 31.2, MCHC 33.0, RDW Std Deviation 41.3, RDW Coeff of Rama 11.9, Plt Count 211, MPV 10.6, Immature Gran % (Auto) 0.300, Neut % (Auto) 67.9, Lymph % (Auto) 21.2, [place] % (Auto) 7.0, Eos % (Auto) 3.1, Baso % (Auto) 0.5, Absolute Neuts (auto) 4.0, Absolute Lymphs (auto) 1.24, Nucleated RBC % 0 Micro: Microbiology 10/30/23 Unknown Wound Abcess - Abdominal Gram Stain - Final 10/30/23 Unknown Wound Abcess - Abdominal Wound Culture - Final Escherichia coli#2 Escherichia coli Klebsiella pneumoniae sp pneum Streptococcus group G 10/30/23 Unknown Wound Abcess - Abdominal Anaerobic Culture - Preliminary Physical Exam Resp normal respiratory effort Cardio regular rate GI GI Narrative: Abdomen: Soft, nondistended, tender near incision's dressed clean dry and intact?no erythema near incisions., no peritoneal signs, ALPHONSE serous in the tubing?looks mostly serous and bulb but may have some purulent remnants from previous Assessment & Plan Assessment/Plan (1) S/P laparoscopic appendectomy: (2) Acute perforated appendicitis: PLAN: Plan Tolerating regular diet., Having bowel function Pain controlled ALPHONSE looks serous and tubing however unsure in the bulb whether this is from previous with slight purulence look. Did rinse out ALPHONSE bulb will plan to take l ook later today. Likely DC home today possibly with or without drain. Dana Smith M.D. Pager: [phone] [facility] [address] [place] [address], [facility], [address] [place] [address] Office: [phone]
[2023-11-02] MEDS: Pantoprazole Sodium 40 MG in 0.9% Normal Saline (100mL MB+) 100 ML 330 MG IV (10:57)
[2023-11-02] MEDS: Morphine 2 MG/ML Syringe IV (11:04)
[2023-11-02] MEDS: 0.9% Saline Lock 10 ML Syringe IV (11:04)
--- NOTE | 2023-11-02 11:13 | DCINST_ITS ---
Discharge Instructions Diet Discharge Diet: Light diet - advance as tolerated Activity Discharge Activity: May Not Drive (while taking narcotic pain medications.) May shower in (days): 1 Lifting Restrictions: no lifting >20 lbs x 2 wks, no strenuous exercise for 4 wks Dressing / Incision Call your doctor if your incision/area has: Continuous Slow Oozing, Sudden Increased Bleeding, Increased Pain/ Swelling, Increased Redness, Foul Smelling Discharge and Swelling at the incision site Call your doctor if you observe: Fever of 101 or Higher Remove Dressing in: 2 days Cleanse incision/area with: Soap & Water Additional Dressing/Incision Instructions:: Steri-Strips will fall off in 7 to 10 days, if they do not fall off okay to remove after 10 days. Follow Up Care Please Follow Up With: Dana Smith MD When: Call the office for a follow-up appointment 1 week; after 5 PM and on the weekends call [phone] with any concerns. Test Results: Test results from this visit will be discussed in further detail at your follow- up appointment, if applicable. Discharge Plan Admission Admit Date/Time: 10/30/23 19:56 Attending Provider: Dana Smith Primary Care Provider: Rina Worrell Discharge Orders/Prescriptions Prescriptions: New oxycodone-acetaminophen 5-325 mg tablet 1 tab PO Q6H PRN (Reason: pain) 3 Days Qty: 10 0RF cefdinir 300 mg capsule 300 mg PO BID Qty: 10 0RF Continued naproxen 500 mg tablet 500 mg PO BID PRN PRN (Reason: pain) Referrals / Follow Up: [facility] Doctor,Out of [Non-Staff] - Disposition Disposition (needs filled in before D/C Order can be placed): Home, Self Care
--- NOTE | 2023-11-02 11:19 | PCM.DC.SUM ---
Providers Date of Admission: 10/30/23 Primary Care Physician: Rina Worrell Reason For Visit: ACUTE PERFORATED APPENDICITIS Diagnosis Discharge Diagnosis (1) S/P laparoscopic appendectomy: Status: Acute Code(s): Z90.49 - Acquired absence of other specified parts of digestive tract (2) Acute perforated appendicitis: Status: Acute Code(s): K35.32 - Acute appendicitis with perforation, localized peritonitis, and gangrene, without abscess Plan Tolerating regular diet., Having bowel function Pain controlled ALPHONSE looks serous and tubing however unsure in the bulb whether this is from previous with slight purulence look. Did rinse out ALPHONSE bulb will plan to take look later today. Likely DC home today possibly with or without drain. Dana Smith M.D. Pager: [phone] [facility] [address] [place] [address], [address] [place] [id number] Office: [phone] Medications at Discharge Home Medications naproxen 500 mg tablet 500 mg PO BID PRN PRN pain 10/30/23 cefdinir 300 mg capsule 300 mg PO BID #10 caps 11/02/23 oxycodone-acetaminophen 5 mg-325 mg tablet 1 tab PO Q6H PRN pain 3 days #10 tabs 11/02/23 Hospital Course Operations appendectomy (Laparoscopic with ALPHONSE placement due to perforated appendicitis) Procedures None Summary of Care Provided Minutes Spent on Discharge: 15 Hospital Course: Patient is admitted after coming to the ER for perforated appendicitis status post laparoscopic appendectomy with ALPHONSE placement. Patient was kept on IV antibiotics during hospitalization. Once patient regained bowel function she was able to to start a diet and have an advanced. Patient is tolerating diet and having bowel function. Patient's pain was controlled. Patient's ALPHONSE was initially purulence first day and appears to change to more of a serosanguineous than serous fluid. Physical Exam Resp normal respiratory effort Cardio regular rate GI GI Narrative: Abdomen: Soft, nondistended, tender near incision's dressed clean dry and intact?no erythema near incisions., no peritoneal signs, ALPHONSE serous in the tubing?looks mostly serous and bulb but may have some purulent remnants from previous Weight / BMI Weight Weight: 157 lb 13.616 oz Body Mass Index (BMI) 28.8 ABG / Lab / Microbiology Data 11/02/23 06:34 11/01/23 05:08 Laboratory: Laboratory Results - last 24 hr 11/02/23 06:34: WBC 5.9, RBC 3.11 L, Hgb 9.7 L, Hct 29.4 L, MCV 94.5, MCH 31.2, MCHC 33.0, RDW Std Deviation 41.3, RDW Coeff of Rama 11.9, Plt Count 211, MPV 10.6, Immature Gran % (Auto) 0.300, Neut % (Auto) 67.9, Lymph % (Auto) 21.2, [place] % (Auto) 7.0, Eos % (Auto) 3.1, Baso % (Auto) 0.5, Absolute Neuts (auto) 4.0, Absolute Lymphs (auto) 1.24, Nucleated RBC % 0 Microbiology: Microbiology 10/30/23 Unknown Wound Abcess - Abdominal Gram Stain - Final 10/30/23 Unknown Wound Abcess - Abdominal Wound Culture - Final Escherichia coli#2 Escherichia coli Klebsiella pneumoniae sp pneum Streptococcus group G 10/30/23 Unknown Wound Abcess - Abdominal Anaerobic Culture - Preliminary D/C Instructions Discharge Diet: Light diet - advance as tolerated May shower in (days): 1 Call your doctor if your incision/area has: Continuous Slow Oozing, Sudden Increased Bleeding, Increased Pain/ Swelling, Increased Redness, Foul Smelling Discharge and Swelling at the incision site Call your doctor if you observe: Fever of 101 or Higher Cleanse incision/area with: Soap & Water Additional Dressing/Incision Instructions: Steri-Strips will fall off in 7 to 10 days, if they do not fall off okay to remove after 10 days. Please Follow Up With: Dana Smith MD When: Call the office for a follow-up appointment on for ALPHONSE removal; after 5 PM and on the weekends call [phone] with any concerns. Meaningful Use Info Meaningful Use Meaningful Use Diagnoses (Choose all that apply): None applicable Ischemic Stroke Statin Dosing Therapy Reference: STATIN DOSE THERAPY REFERENCE: * Patients > 75 years receive moderate or high dose statin therapy. * Patients 75 years or YOUNGER should receive HIGH intensity statin dose unless contraindicated. You will be required to document reason for non-treatment if statin daily dose does not meet guidelines. HIGH DOSE STATIN THERAPY DAILY Atorvastatin > than or = to 40 mg Rosuvastatin > than or = to 20 mg Amlodipine + Atorvastatin > than or = to 2.5/40 mg Ezetimibe + Simvastatin 10/80 mg Simvastatin 80mg Discharge Plan Admission Admit Date/Time: 10/30/23 19:56 Attending Provider: Dana Smith Primary Care Provider: Rina Worrell Discharge Orders/Prescriptions Prescriptions: New oxycodone-acetaminophen 5-325 mg tablet 1 tab PO Q6H PRN (Reason: pain) 3 Days Qty: 10 0RF cefdinir 300 mg capsule 300 mg PO BID Qty: 10 0RF Continued naproxen 500 mg tablet 500 mg PO BID PRN PRN (Reason: pain) Referrals / Follow Up: [facility] Doctor,Out of [Non-Staff] - Disposition Disposition (needs filled in before D/C Order can be placed): Home, Self Care
[2023-11-02] MEDS: oxyCODONE 5 MG Tablet PO (14:29)
--- NOTE | 2023-11-02 14:39 | CASEMGMT ---
RN CM into patient room, patient up walking in room in no distress. Pt stated she is comfortable with ALPHONSE drain and denies needs going home.
--- NOTE | 2023-11-02 14:42 | PHA.DC.MC.R ---
Pharmacy [facility] has performed discharge medication reconciliation and counseling for this patient. 1. CEFDINIR 300MG PO BID X 5 DAYS 2. OXYCODONE/ACETAMINOPHEN 5/325MG 1T PO Q6H PRN PAIN The patient's discharge medication list was reviewed for discrepancies and discrepancies were resolved. The patient was counseled on the following discharge medications and changes in medications for homegoing were reviewed. The Reason for Use, instructions for use, and potential side effects were reviewed for all new medications. The patient's questions regarding all of their medications were answered. The patient was able to verbally demonstrate an understanding of their discharge medications. Medications at Discharge Home Medications naproxen 500 mg tablet 500 mg PO BID PRN PRN pain 10/30/23 cefdinir 300 mg capsule 300 mg PO BID #10 caps 11/02/23 oxycodone-acetaminophen 5 mg-325 mg tablet 1 tab PO Q6H PRN pain 3 days #10 tabs 11/02/23
== END 2023-11-02 14:42 | disposition home or self-care (01) | DRG 399 ==
LOC: ED 18:28 → SDC 19:39 → MS3 19:42 → SDC 20:31 → MS3 20:31
PROVIDERS: Physician Assistant; Admitting Provider Surgery; Emergency Provider Emergency Medicine; Visit Provider Surgery
PROC: 0DTJ4ZZ Resection of Appendix, Percutaneous Endoscopic Approach (ICD-10-PCS; CPT 44970; principal; 2023-10-30 20:30)
DX: K35.32 Acute appendicitis with perforation, localized peritonitis, and gangrene, without abscess (principal); F17.210 Nicotine dependence, cigarettes, uncomplicated; G43.909 Migraine, unspecified, not intractable, without status migrainosus
CPT/HCPCS: 36415; 74177; 80048; 80053; 81001; 83690; 84703; 85025; 87070; 87075; 87077; 87186; 87205; 88108; 88304; 88305; 88313; 94668; 99284; J7030; J7050; Q9967; A4216; C1760; J2405